=== PATIENT | male | born 1955 | race Caucasian/White ===

== ENCOUNTER 2018-04-23 14:35 | Emergency (ER) | payer SELFPAY ==
[~2018-04-23] VITALS: Ht 162.6 cm; Wt 65.0 kg
[~2018-04-23 14:35] MED LIST: AMOXICILLIN/CL875 MG PO; AUGMENTIN875TAB PO; CEPHALEXIN500 M1 PO; ELIQUIS5 MG PO; LOTRISONE CREAM15 G1 EX; OMEPRAZOLE20 MG PO; VENTOLIN HFA IN; ZYVOX600 M1 PO
[2018-04-23 15:23] LABS: HEMATOCRIT 33.4 % (39.0-50.0); HEMOGLOBIN 9.5 g/dl (14.0-18.0); IMMATURE GRANULOCYTES 0.5 % (0.0-5.0); MEAN CORPUSCULAR HGB 20.8 pG CALC (26.0-32.0); MEAN CORPUSCULAR HGB CONC 28.4 g/L CALC (32.0-36.0); NEUT# 6.55 thou/uL (1.82-7.42); RED BLOOD COUNT 4.57 mill/uL (4.70-6.10); RED CELL DISTRI WIDTH 18.9 % (11.5-15.5)
[2018-04-23 15:24] LABS: MEAN CELL VOLUME 73.1 fL CALC (80.0-100.0)
[2018-04-23] MEDS ORDERED: ALBUTEROL SUL0.083 % IN (15:25)
[2018-04-23 15:28] LABS: ALBUMIN 4.6 g/dL (3.2-5.0); ALKALINE PHOSPHATASE 82 u/l (38-126); ANION GAP 17 (6-22 (CALC)); BILIRUBIN, TOTAL 0.5 mg/dL (0.0-1.4); BUN 14 mg/dL (8-23); BUN/CREATININE RATIO 22 (12-20 (CALC)); CARBON DIOXIDE 25 mmol/l (22-30); CHLORIDE 101 mmol/l (95-108); CREATININE 0.6 mg/dL (0.7-1.3); GFR > 60 ML/MIN (>=60 (CALC)); GFR FOR AFR.AMER. > 60 ML/MIN (>=60 (CALC)); POTASSIUM 4.4 mmol/l (3.5-5.1); SGOT/AST 27 u/l (19-48); SODIUM 138 mmol/l (137-146); TOTAL PROTEIN 8.5 g/dL (6.3-8.2)
[2018-04-23 15:40] LABS: MYOGLOBIN 24 ng/mL (0 - 121)
[2018-04-23] MEDS ORDERED: MEDDOSEPAK PO (17:02)
[2018-04-23] MEDS ORDERED: ZITHROMAX250 MG PO (17:02)
[2018-04-23 17:15] VITALS: BP 167/87
== END 2018-04-23 17:35 | disposition home or self-care (01) | DRG 192 ==
LOC: ED 14:35
PROVIDERS: Emergency Medicine
DX: J44.1 Chronic obstructive pulmonary disease with (acute) exacerbation (principal); J06.9 Acute upper respiratory infection, unspecified; R06.02 Shortness of breath; R42 Dizziness and giddiness; R53.1 Weakness; D64.9 Anemia, unspecified